=== PATIENT | female | born 1980 | race Caucasian/White ===

== ENCOUNTER 2022-05-11 13:46 | Outpatient (CLI) | payer OTHER, SELFPAY ==
[2022-05-11 15:48] LABS: Cholesterol* 162 mg/dL (90-199)
[2022-05-11 15:49] LABS: HDL Cholesterol* 80 mg/dL (>=50); LDL Cholesterol Calculated 70 mg/dL (<100); Triglycerides* 60 mg/dL (40-149)
[2022-05-11 16:18] LABS: TSH With Reflex to FT4* 0.915 uIU/mL (0.270-4.200)
[2022-05-11 18:30] LABS: Chlamydia DNA Amplified* NOT DETECTED (No Detected); GC DNA Amplified* NOT DETECTED (No Detected)
== END 2022-05-11 13:47 | disposition home or self-care (01) ==
PROVIDERS: Visit Provider Registered Nurse
DX: Z01.419 Encounter for gynecological examination (general) (routine) without abnormal findings (principal); N92.0 Excessive and frequent menstruation with regular cycle; R73.03 Prediabetes; Z11.3 Encounter for screening for infections with a predominantly sexual mode of transmission
CPT/HCPCS: 80061; 84443; 87491; 87591

== ENCOUNTER 2022-05-18 10:39 | Outpatient (CLI) | payer OTHER, SELFPAY ==
--- NOTE | 2022-05-18 11:00 | CRLHL7_ITS ---
For Patients: As a result of the Century Cures Act, medical imaging exams and procedure reports are released immediately into your electronic medical record. You may view this report before your referring provider. If you have questions, please contact your health care provider. INDICATION: menorrhagia COMPARISON: none TECHNIQUE: 2D pedersen scale and color Doppler images were acquired of the pelvis using a transabdominal and transvaginal approach. FINDINGS: Sonographic images demonstrate a normal size and smooth outer contour of the uterus. Uterus measures 8.3 cm in length by 7.2 cm in AP diameter by 4.0 cm in transverse dimension. The myometrium has a normal uniform echotexture. The endometrial lining measures 7 mm in composite thickness. The right ovary measures 2.8 x 2.0 x 1.8 cm in size and the left ovary measures 3.0 x 1.5 x 1.5 cm. Incidental hyperechoic focus within the right ovary. The ovaries demonstrate normal arterial and venous blood flow on color Doppler analysis. There are no suspicious fluid collections within the cul-de-sac. IMPRESSION: Endometrium measures 7 millimeters. No endometrial fluid. No uterine fibroid. Dictated by Luis Bellamy MD @ 05/18/2022 12:44:42 PM (Electronically Signed)
== END 2022-05-18 10:40 | disposition home or self-care (01) ==
LOC: US 10:40
PROVIDERS: Visit Provider Registered Nurse
DX: N92.0 Excessive and frequent menstruation with regular cycle (principal)
CPT/HCPCS: 76830; 76856

== ENCOUNTER 2023-11-21 13:42 | Outpatient (CLI) | payer OTHER, SELFPAY | END 2023-11-21 13:43 | disposition home or self-care (01) | PROVIDERS: Visit Provider Registered Nurse | DX: Z01.419 Encounter for gynecological examination (general) (routine) without abnormal findings (principal); R53.83 Other fatigue; R73.03 Prediabetes; Z13.1 Encounter for screening for diabetes mellitus | CPT/HCPCS: 82306; 82728; 84443 ==

== ENCOUNTER 2024-01-17 12:27 | Outpatient (CLI) | payer OTHER, SELFPAY ==
--- NOTE | 2024-01-17 13:00 | CRLHL7_ITS ---
For Patients: As a result of the Century Cures Act, medical imaging exams and procedure reports are released immediately into your electronic medical record. You may view this report before your referring provider. If you have questions, please contact your health care provider. BILATERAL SCREENING MAMMOGRAM WITH COMPUTER-AIDED DETECTION AND TOMOSYNTHESIS TECHNIQUE: CC and MLO views were obtained. These mammographic images have been obtained using full-field digital technique. These mammographic images were interpreted with the benefit of computer-aided detection. Breast Tomosynthesis was used in this interpretation. COMPARISON FILM: Baseline. FINDINGS: There are scattered areas of fibroglandular density IMPRESSION: There is no radiographic evidence for malignancy. ASSESSMENT: BI-RADS Category 1: Negative RECOMMENDATION: Routine screening mammogram in 1 year. A lay language report of this examination will be provided to the patient. Luis Bellamy M.D. Diagnostic Radiologist [email or web address] JONNY/Dictated by: Luis Bellamy MD @ 01/28/2024 10:44:00 AM (Electronically Signed)
== END 2024-01-17 12:28 | disposition home or self-care (01) ==
LOC: MAMMO 12:27
PROVIDERS: Visit Provider Registered Nurse
DX: Z12.31 Encounter for screening mammogram for malignant neoplasm of breast (principal)
CPT/HCPCS: 77063; 77067